=== PATIENT | female | born 1995 | race Caucasian/White ===

== ENCOUNTER 2024-10-24 22:53 | Emergency (ER) | payer BC, OTHER ==
[2024-10-24] MEDS: SUMAtriptan 6 MG/0.5 ML SDV SUBCUT ONE (23:24)
[2024-10-25 00:29] VITALS: BP 108/78; PULSE 79
== END 2024-10-25 00:25 | disposition home or self-care (01) ==
LOC: FB.ED 22:53
DX: G43.909 Migraine, unspecified, not intractable, without status migrainosus (principal); Z79.899 Other long term (current) drug therapy
CPT/HCPCS: 96372; 99283; A9270-GY; J3030